=== PATIENT | female | born 1950 | race African-American/Black ===

== ENCOUNTER 2017-05-12 09:19 | Observation (INO) | payer OTHER ==
[~2017-05-12] VITALS: Ht 165.1 cm; Wt 67.1 kg
[2017-05-12] MEDS ORDERED: SIMVASTATIN40 MG ORAL (09:31)
[2017-05-12] MEDS ORDERED: Sodium Chloride 500ML 500 ML IV ONE (09:42)
[2017-05-12] MEDS ORDERED: Solu-MEDROL 125mg Inj IVP ONE (09:45)
[2017-05-12] MEDS ORDERED: DiphenhydrAMINE 50mg/ml Inj IVP ONE (09:45)
[2017-05-12 10:20] LABS: BASOPHILS % (AUTO) 1.1 % (0.0-2.0); EOSINOPHILS % (AUTO) 0.7 % (0.0-3.0); HEMATOCRIT 40.8 % (37.0-47.0); LYMPHOCYTES % (AUTO) 18.9 % (20.0-45.0); MEAN CORPUSCULAR VOLUME 102 FL (80-99); MONOCYTES % (AUTO) 7.6 % (1.0-10.0); NEUTROPHILS % (AUTO) 71.6 % (45.0-75.0); PLATELET COUNT 428 K/UL (150-450); WHITE BLOOD COUNT 8.2 K/UL (4.8-10.8)
[2017-05-12 10:30] VITALS: BP 148/62
[2017-05-12 10:33] LABS: ANION GAP 9 mmol/L (5-15); BLOOD UREA NITROGEN 6 mg/dL (7-18); CALCIUM 9.5 MG/DL (8.5-10.1); CARBON DIOXIDE 28 MMOL/L (21-32); CHLORIDE 98 MMOL/L (98-107); CREATININE 0.6 MG/DL (0.55-1.30); SODIUM 135 MMOL/L (136-145)
[2017-05-12 10:47] LABS: ALANINE AMINOTRANSFERASE 24 U/L (12-78); ALBUMIN 3.9 G/DL (3.4-5.0); ALBUMIN/GLOBULIN RATIO 0.9 (1.0-2.7); ALKALINE PHOSPHATASE 86 U/L (46-116); ASPARTATE AMINO TRANSFERASE 19 U/L (15-37); BILIRUBIN,TOTAL 0.5 MG/DL (0.2-1.0); CKMB 0.9 NG/ML (0.0-3.6); CREATINE KINASE 99 U/L (26-308)
--- NOTE | 2017-05-12 10:59 | Diagnostic Imaging Report ---
Indication: Dyspnea Comparison: None A single view chest radiograph was obtained. Findings: No definite infiltrate or pulmonary vascular congestion identified. The heart is enlarged. The aorta is mildly enlarged consistent with atherosclerotic vascular disease. The bones are osteopenic. Impression: No acute disease
[2017-05-12 12:47] VITALS: BP 146/111
[2017-05-12 14:48] VITALS: BP 154/70
--- NOTE | 2017-05-12 14:51 | Emergency Room Report ---
History of Present Illness General Chief Complaint: General Complaint Source: Patient Present Illness HPI 66-year-old female presents ED for evaluation. Patient states she was prescribed simvastatin by her PMD yesterday. Took one tablet last night. States she's been feeling short of breath since. Short of breath while resting during walking. Denies any chest pain. Denies any fevers or chills. Denies cough. Notes muscle aches. Dull, 5/10, nonradiating. No other aggravating or relieving factors. Denies any other suspected symptoms Allergies: Coded Allergies: No Known Allergies (Unverified , 05/12/17) Patient History Past Medical History: none Past Surgical History: none Pertinent Family History: none Social History: Denies: smoking, alcohol use, drug use Now: No Immunizations: UTD Reviewed Nursing Documentation: PMH: Agreed, PSxH: Agreed Nursing Documentation-PMH Past Medical History: No History, Except For Hx Cardiac Problems: No - high cholesterol Hx Hypertension: No Hx Pacemaker: No Hx Asthma: No Hx COPD: No Hx Diabetes: No Hx Cancer: No Hx Gastrointestinal Problems: No Hx Dialysis: No History Of Psychiatric Problem: No Hx Neurological Problems: No Hx Cerebrovascular Accident: No Hx Seizures: No Review of Systems All Other Systems: negative except mentioned in HPI Physical Exam Vital Signs Date Time Temp Pulse Resp B/P (MAP) Pulse Ox O2 Delivery O2 Flow Rate FiO2 05/12/17 09:24 98.3 79 16 150/85 99 Room Air 98.2 Sp02 EP Interpretation: reviewed, normal General Appearance: no apparent distress, alert, GCS 15, non-toxic Head: normocephalic, atraumatic Eyes: bilateral eye normal inspection, bilateral eye PERRL ENT: hearing grossly normal, normal pharynx, no angioedema, normal voice Neck: full range of motion, supple/symm/no masses Respiratory: chest non-tender, lungs clear, normal breath sounds, speaking full sentences Cardiovascular #1: regular rate, rhythm, no edema Cardiovascular #2: 2+ carotid (R), 2+ carotid (L), 2+ radial (R), 2+ radial (L) , 2+ dorsalis pedis (R), 2+ dorsalis pedis (L) Gastrointestinal: normal bowel sounds, non tender, soft, non-distended, no guarding, no rebound Rectal: deferred Genitourinary: normal inspection, no CVA tenderness Musculoskeletal: back normal, gait/station normal, normal range of motion, non- tender Neurologic: alert, oriented x3, responsive, motor strength/tone normal, sensory intact, speech normal Psychiatric: judgement/insight normal, memory normal, mood/affect normal, no suicidal/homicidal ideation Reflexes: 3+ bicep (R), 3+ bicep (L), 3+ tricep (R), 3+ tricep (L), 3+ knee (R) , 3+ knee (L) Skin: normal color, no rash, warm/dry, well hydrated Lymphatic: no adenopathy Medical Decision Making Diagnostic Impression: Primary Impression: Dyspnea Qualified Codes: R06.00 - Dyspnea, unspecified Additional Impressions: Elevated troponin ACS (acute coronary syndrome) ER Course Hospital Course 66-year-old female present to ED complaining of shortness of breath which started after taking simvastatin for the first time Differential diagnoses include: UT/unstable angina, pneuonia, allergic reaction Clinical course Patient placed on stretcher. on groundwater monitoring technician. After initial history and physical I ordered labs, EKG, chest x-ray, benedryl, solumedrol labs reviewed- no leukocytosis, hb/hct stable, electrolytes ok, trop 0.04 then 0.07 EKG - NSR, no acute ischemic changes interpreted by me Chest x-ray- no acute process Patient remains without chest pain but does appear short of breath during walking and while talking. No CHF symptoms. Aspirin given Case discussed with Dr. Hayes and he agreed to accept the patient to his service for further care and support I. I feel this is a highly complex case requiring extensive working including EKG/Rhythm strip, Xray/CT/US, Blood/urine lab work, repeat exams while in ED, and administration of strong opiates/narcotics for pain control, admission to hospital or close patient follow up. Diagnosis - dyspnea, elevated troponin, ACS admitted to telemetry in serious condition Labs Test 05/12/17 10:00 05/12/17 13:44 White Blood Count 8.2 K/UL (4.8-10.8) Red Blood Count 4.00 M/UL (4.20-5.40) Hemoglobin 14.0 G/DL (12.0-16.0) Hematocrit 40.8 % (37.0-47.0) Mean Corpuscular Volume 102 FL (80-99) Mean Corpuscular Hemoglobin 34.9 PG (27.0-31.0) Mean Corpuscular Hemoglobin Concent 34.2 G/DL (32.0-36.0) Red Cell Distribution Width 11.0 % (11.6-14.8) Platelet Count 428 K/UL (150-450) Mean Platelet Volume 5.4 FL (6.5-10.1) Neutrophils (%) (Auto) 71.6 % (45.0-75.0) Lymphocytes (%) (Auto) 18.9 % (20.0-45.0) Monocytes (%) (Auto) 7.6 % (1.0-10.0) Eosinophils (%) (Auto) 0.7 % (0.0-3.0) Basophils (%) (Auto) 1.1 % (0.0-2.0) Sodium Level 135 MMOL/L (136-145) Potassium Level 4.0 MMOL/L (3.5-5.1) Chloride Level 98 MMOL/L (98-107) Carbon Dioxide Level 28 MMOL/L (21-32) Anion Gap 9 mmol/L (5-15) Blood Urea Nitrogen 6 mg/dL (7-18) Creatinine 0.6 MG/DL (0.55-1.30) Estimat Glomerular Filtration Rate > 60 mL/min (>60) Glucose Level 99 MG/DL (74-106) Calcium Level 9.5 MG/DL (8.5-10.1) Total Bilirubin 0.5 MG/DL (0.2-1.0) Aspartate Amino Transf (AST/SGOT) 19 U/L (15-37) Alanine Aminotransferase (ALT/SGPT) 24 U/L (12-78) Alkaline Phosphatase 86 U/L (46-116) Total Creatine Kinase 99 U/L (26-308) Creatine Kinase MB 0.9 NG/ML (0.0-3.6) Creatine Kinase MB Relative Index 0.9 Troponin I 0.040 ng/mL (0.000-0.056) 0.070 ng/mL (0.000-0.056) Pro-B-Type Natriuretic Peptide 138 pg/mL (0-125) Total Protein 8.1 G/DL (6.4-8.2) Albumin 3.9 G/DL (3.4-5.0) Globulin 4.2 g/dL Albumin/Globulin Ratio 0.9 (1.0-2.7) EKG Diagnostic Results Rate: normal Rhythm: NSR ST Segments: no acute changes ASA given to the pt in ED: Yes Rhythm Strip Diag. Results EP Interpretation: yes Rhythm: NSR, no PVC's, no ectopy Chest X-Ray Diagnostic Results Chest X-Ray Diagnostic Results : Chest X-Ray Ordered: Yes # of Views/Limited/Complete: 1 View Indication: Shortness of Breath EP Interpretation: Yes Interpretation: no consolidation, no pneumothorax, no acute cardiopulmonary disease Impression: No acute disease Electronically Signed by: Electronically signed by Galen Vera MD Last Vital Signs Date Time Temp Pulse Resp B/P (MAP) Pulse Ox O2 Delivery O2 Flow Rate FiO2 05/12/17 12:47 98.1 71 17 146/111 100 Room Air 98.1 Status: improved Disposition: ADMITTED INPATIENT Condition: Serious Referrals: [facility],REFERRING (PCP) GALEN VERA M.D. May 12, 2017 14:51
[2017-05-12 15:35] VITALS: BP 112/58
[2017-05-12 16:00] VITALS: BP 136/74
[2017-05-12] MEDS: LORazepam 0.5mg tab ORAL PRN (18:47)
[2017-05-12 21:00] VITALS: BP 123/62
[2017-05-13] VITALS: BP 130/95
[2017-05-13 04:00] VITALS: BP 108/56
[2017-05-13 07:40] LABS: BASOPHILS % (AUTO) 0.6 % (0.0-2.0); EOSINOPHILS % (AUTO) 0.4 % (0.0-3.0); HEMATOCRIT 36.8 % (37.0-47.0); HEMOGLOBIN 12.7 G/DL (12.0-16.0); MEAN CORPUSCULAR VOLUME 102 FL (80-99); MONOCYTES % (AUTO) 8.1 % (1.0-10.0); NEUTROPHILS % (AUTO) 65.9 % (45.0-75.0); PLATELET COUNT 411 K/UL (150-450); RED BLOOD COUNT 3.61 M/UL (4.20-5.40); WHITE BLOOD COUNT 10.6 K/UL (4.8-10.8)
[2017-05-13 08:00] VITALS: BP 125/56
[2017-05-13 08:06] LABS: ANION GAP 6 mmol/L (5-15); BLOOD UREA NITROGEN 8 mg/dL (7-18); CALCIUM 9.5 MG/DL (8.5-10.1); CARBON DIOXIDE 29 MMOL/L (21-32); CHLORIDE 100 MMOL/L (98-107); CHOLESTEROL 191 MG/DL (< 200); CREATININE 0.6 MG/DL (0.55-1.30); HDL CHOLESTEROL 71 MG/DL (40-60); POTASSIUM 4.3 MMOL/L (3.5-5.1); SODIUM 135 MMOL/L (136-145); TRIGLYCERIDES 52 MG/DL (30-150)
[2017-05-13] MEDS: LORazepam 0.5mg tab ORAL PRN (11:08)
--- NOTE | 2017-05-13 11:44 | History and Physical ---
History of Present Illness General Date patient seen: May 13, 2017 Reason for Hospitalization: General Complaint Present Illness HPI 66 y/o female with newly diagnosed hyperlipidemia presented to the ED with complaints of chest tightness and leg cramping. She attributes her symptoms to taking simvastatin the night prior. She was just prescribed this cholesterol medication by her PCP after having a lipid panel showing total cholesterol of 250. She does state that she was not fasting at the time her blood was drawn. Her troponin was normal in the ED. She was admitted for further care. Allergies: Coded Allergies: No Known Allergies (Unverified , 05/12/17) Medication History Scheduled Simvastatin (Zocor), 40 MG ORAL BEDTIME, (Reported) Patient History History Provided By: Patient Healthcare decision maker Resuscitation status Full Code Advanced Directive on File Past Medical/Surgical History Past Medical/Surgical History: (1) Hyperlipidemia Review of Systems All Other Systems: negative except mentioned in HPI Physical Exam General Appearance: WD/WN, no apparent distress HEENT: normocephalic, atraumatic Neck: supple Respiratory/Chest: lungs clear Cardiovascular/Chest: normal rate, regular rhythm Abdomen: non tender, soft Extremities: non-tender, non-pitting, no edema Neurologic: alert, oriented x 3 Last 24 Hour Vital Signs Date Time Temp Pulse Resp B/P (MAP) Pulse Ox O2 Delivery O2 Flow Rate FiO2 05/13/17 08:00 65 05/13/17 08:00 98.1 67 22 125/56 97 Room Air 05/13/17 04:00 98.4 58 20 108/56 98 Room Air 05/13/17 03:45 46 05/13/17 00:00 98.2 89 20 130/95 97 Room Air 05/12/17 23:51 55 05/12/17 21:00 97.2 58 20 123/62 98 Room Air 05/12/17 16:00 91 05/12/17 16:00 99.1 79 19 136/74 98 Room Air 05/12/17 15:45 98.9 72 15 112/56 100 Room Air 05/12/17 15:35 71 15 112/58 100 Room Air 05/12/17 14:48 98.3 72 16 154/70 100 Room Air 98.3 05/12/17 12:47 98.1 71 17 146/111 100 Room Air 98.1 Intake and Output 05/12/17 05/13/17 19:00 07:00 Intake Total 980 ml Output Total 200 ml Balance 980 ml -200 ml Intake Oral 480 ml IV Total 500 ml Output Urine Total 200 ml # Voids 4 3 Laboratory Tests Test 05/12/17 13:44 05/13/17 06:20 Troponin I 0.070 ng/mL (0.000-0.056) 0.033 ng/mL (0.000-0.056) White Blood Count 10.6 K/UL (4.8-10.8) Red Blood Count 3.61 M/UL (4.20-5.40) L Hemoglobin 12.7 G/DL (12.0-16.0) Hematocrit 36.8 % (37.0-47.0) L Mean Corpuscular Volume 102 FL (80-99) H Mean Corpuscular Hemoglobin 35.2 PG (27.0-31.0) H Mean Corpuscular Hemoglobin Concent 34.5 G/DL (32.0-36.0) Red Cell Distribution Width 11.0 % (11.6-14.8) L Platelet Count 411 K/UL (150-450) Mean Platelet Volume 5.4 FL (6.5-10.1) L Neutrophils (%) (Auto) 65.9 % (45.0-75.0) Lymphocytes (%) (Auto) 25.0 % (20.0-45.0) Monocytes (%) (Auto) 8.1 % (1.0-10.0) Eosinophils (%) (Auto) 0.4 % (0.0-3.0) Basophils (%) (Auto) 0.6 % (0.0-2.0) Sodium Level 135 MMOL/L (136-145) L Potassium Level 4.3 MMOL/L (3.5-5.1) Chloride Level 100 MMOL/L (98-107) Carbon Dioxide Level 29 MMOL/L (21-32) Anion Gap 6 mmol/L (5-15) Blood Urea Nitrogen 8 mg/dL (7-18) Creatinine 0.6 MG/DL (0.55-1.30) Estimat Glomerular Filtration Rate > 60 mL/min (>60) Glucose Level 77 MG/DL (74-106) Calcium Level 9.5 MG/DL (8.5-10.1) Pro-B-Type Natriuretic Peptide 252 pg/mL (0-125) H Triglycerides Level 52 MG/DL (30-150) Cholesterol Level 191 MG/DL (< 200) LDL Cholesterol 115 mg/dL (<100) H HDL Cholesterol 71 MG/DL (40-60) H Cholesterol/HDL Ratio 2.7 (3.3-4.4) L Height (Feet): 5 Height (Inches): 5.00 Weight (Pounds): 148 Medications Current Medications Medications (Trade) Dose Ordered Sig/Zita Route PRN Reason Start Time Stop Time Status Last Admin Dose Admin Lorazepam (Ativan) 0.5 mg TIDPRN PRN ORAL For Anxiety 05/12/17 18:30 05/19/17 18:29 05/13/17 11:08 Assessment/Plan Problem List: (1) ACS (acute coronary syndrome) ICD Codes: I24.9 - Acute ischemic heart disease, unspecified SNOMED: 018699272 (2) Dyspnea ICD Codes: R06.00 - Dyspnea, unspecified SNOMED: 840129405 Qualifiers: Qualified Codes: R06.00 - Dyspnea, unspecified (3) Hyperlipidemia ICD Codes: E78.5 - Hyperlipidemia, unspecified SNOMED: 16720379 (4) Elevated troponin ICD Codes: R74.8 - Abnormal levels of other serum enzymes SNOMED: 328038442, 176185087, 318942336 Assessment/Plan Check fasting lipid panel. Check serial troponin. Cardiology eval. Check echo. D/c plan if all tests negative and AMI ruled out. LUCIAN NARVAEZ May 13, 2017 11:44
[2017-05-13 12:00] VITALS: BP 144/69
--- NOTE | 2017-05-13 12:43 | Discharge Summary ---
Discharge Summary Hospital Course Date of Admission May 12, 2017 at 14:20 Date of Discharge May [id number] Admitting Diagnosis sob,acs HPI Charlotte Aviles is a 66 y/o female with newly diagnosed hyperlipidemia presented to the ED with complaints of chest tightness and leg cramping. She attributes her symptoms to taking simvastatin the night prior. She was just prescribed this cholesterol medication by her PCP after having a lipid panel showing total cholesterol of 250. She does state that she was not fasting at the time her blood was drawn. Her troponin was normal in the ED. She was admitted for further care. Consultations Cardiology - Dr. Murillo. Hospital Course Serial troponin was checked and negative. She did take ativan at night prior to bedtime and was noted to be bradycardic with HR 46. However she was asymptomatic. She has no further chest pain or SOB. Lipid panel was ok. She is pending echo and cardiac clearance given her episode of bradycardia. Should anticipate discharge home today and follow up with PCP and outpatient cardiac workup. Discharge Condition Upon Discharge: stable Discharge Disposition Patient was discharged to Home (01) Discharge Diagnoses: (1) Dyspnea (2) Hyperlipidemia (3) ACS (acute coronary syndrome) LUCIAN NARVAEZ May 13, 2017 12:43
--- NOTE | 2017-05-15 13:13 | Cardiology Report ---
APPROVED REPORT EXAM: Two-dimensional and M-mode echocardiogram with Doppler and color Doppler. INDICATION Bradycardia M-Mode DIMENSIONS IVSd0.9 (0.7-1.1cm)Left Atrium (MM)2.9 (1.6-4.0cm) LVDd4.7 (3.5-5.6cm)Aortic Root2.5 (2.0-3.7cm) PWd0.7 (0.7-1.1cm)Aortic Cusp Exc.1.8 (1.5-2.0cm) LVDs2.9 (2.5-4.0cm) PWs1.6 cm Normal left ventricular chamber size, systolic function and wall motion. Left ventricular ejection fraction estimated to be 60-65 %. No evidence of left ventricular hypertrophy. No evidence of pericardial effusion. All other cardiac chamber sizes are within normal limits. Focal aortic valve sclerosis with adequate cusp excursion. Mildly thickened mitral valve leaflets with normal excursion. Mild mitral annulus and aortic root calcification. Normal pulmonic valve structure. Normal tricuspid valve structure. IVC dilated at 2.0 cm with physiologic collapse suggestive of increased RA pressure. A color flow and spectral Doppler study was performed and revealed: No aortic regurgitation.. No mitral regurgitation. Mitral diastolic velocities suggest mild left ventricular dysfunction (Grade I ). Trace tricuspid regurgitation. Tricuspid systolic velocities suggests peak right ventricular systolic pressure of 24 mmHg. Trace pulmonic regurgitation present.
--- NOTE | 2017-05-15 15:29 | Cardiology Report ---
APPROVED REPORT EKG Measurement Heart [id number] MD [id number] Normal sinus rhythm with sinus arrhythmia Left anterior fascicular block Nonspecific ST abnormality Abnormal ECG
== END 2017-05-13 15:30 | disposition home or self-care (01) ==
LOC: EMR 09:35 → INTOOBSV 14:20 → 2E 14:20 → EDBEDREQ 14:37
DX: I24.9 Acute ischemic heart disease, unspecified (principal); E78.00 Pure hypercholesterolemia, unspecified; E78.5 Hyperlipidemia, unspecified; I44.4 Left anterior fascicular block; R74.8 Abnormal levels of other serum enzymes; M85.88 Other specified disorders of bone density and structure, other site
CPT/HCPCS: 36415 ×2; 71045; 80048; 80053; 80061; 82550; 82553; 83880 ×2; 84484 ×2; 85025 ×2; 93005; 93306; 99285; G0378 ×2; J1200; J2930; J7040

== ENCOUNTER 2018-05-20 12:02 | Emergency (ER) | payer OTHER ==
[~2018-05-20] VITALS: Ht 167.6 cm; Wt 63.5 kg
[~2018-05-20 12:02] MED LIST: SIMVASTATIN40 MG ORAL
--- NOTE | 2018-05-20 12:37 | NUR ---
ED Nurse Note: pt walked in to ED due to tripped and fell injury yesterday. pt c/o pain on left upper arm. no deformity noted. limited ROM noted due to pain. AAO x4. respirations even and non-labored noted. skin intact. dried blood noted on upper lip. will wait for the further order.
[2018-05-20 13:09] VITALS: BP 135/65
--- NOTE | 2018-05-20 13:14 | NUR ---
ED Nurse Note: Notified radiology of order.
--- NOTE | 2018-05-20 13:25 | Emergency Room Report ---
History of Present Illness General Chief Complaint: Multiple Trauma/Fall Present Illness HPI 67-year-old female presents to the emergency department complaining of 4 out of 10 in severity pain localized to the left wrist and left elbows times one day status post mechanical trip and fall yesterday. Patient reports that she fell onto cement and landed on her chin/mouth she states that she sustained injury to one of the front left upper teeth as well as some abrasions to pull areas including left side of the upper lip, lateral aspect of the left hand as well as the anterior right knee. Patient states she is up-to-date with tetanus vaccinations she denies taking blood thinning medications she denies loss of consciousness, headache, dizziness, chest pain or palpitations. Patient denies midline neck or back pain. She reports pain is exacerbated upon movement of the left wrist and attempts to bend the left elbow. Patient reports some swelling erythema/bruising. Patient denies previous injury to this extremity. Patient denies paresthesias or loss of gross motor movements to the affected extremity. Denies sudden onset WEINER. Denies taking blood thinning medications. Allergies: Coded Allergies: No Known Allergies (Unverified , 05/12/17) Patient History Past Medical History: see triage record Past Surgical History: unable to obtain Pertinent Family History: none Now: No Reviewed Nursing Documentation: PMH: Agreed; PSxH: Agreed Nursing Documentation-PMH Hx Cardiac Problems: No - high cholesterol Hx Hypertension: No Hx Pacemaker: No Hx Asthma: No Hx COPD: No Hx Diabetes: No Hx Cancer: No Hx Gastrointestinal Problems: No Hx Dialysis: No Hx Neurological Problems: No Hx Cerebrovascular Accident: No Hx Seizures: No Review of Systems All Other Systems: negative except mentioned in HPI Physical Exam Vital Signs Date Time Temp Pulse Resp B/P (MAP) Pulse Ox O2 Delivery O2 Flow Rate FiO2 05/20/18 12:29 98.8 62 18 140/80 98 Room Air Sp02 EP Interpretation: reviewed, normal General Appearance: no apparent distress, alert, GCS 15, non-toxic Head: normocephalic, other - swelling of the upper lip with superficial abrasion noted, no bleeding, left front incisor is chipped. Eyes: bilateral eye normal inspection, bilateral eye PERRL ENT: hearing grossly normal, normal voice Neck: full range of motion, no bony tend Respiratory: chest non-tender, lungs clear, normal breath sounds, speaking full sentences Cardiovascular #1: regular rate, rhythm Gastrointestinal: non tender, soft Musculoskeletal: back normal, gait/station normal, normal range of motion, swelling - LEft elbow and left wrist, tender - Left elbow and left wrist, pain with ROM. Neurologic: alert, oriented x3, responsive, motor strength/tone normal, sensory intact, normal gait, speech normal, grossly normal Psychiatric: judgement/insight normal Skin: normal color, no rash, warm/dry, well hydrated, abrasions - right anterior knee abrasion, abrasion to the lateral aspect of the left hand. Medical Decision Making PA Attestation Dr. Arteaga is my supervising Physician whom patient management has been discussed with. Diagnostic Impression: Primary Impression: Contusion, multiple sites Additional Impressions: Abrasions of multiple sites Elbow fracture, left Qualified Codes: S42.402A - Unspecified fracture of lower end of left humerus , initial encounter for closed fracture ER Course 67-year-old female presents to the emergency department complaining of 4 out of 10 in severity pain localized to the left wrist and left elbows times one day status post mechanical trip and fall yesterday. Patient reports that she fell onto cement and landed on her chin/mouth she states that she sustained injury to one of the front left upper teeth as well as some abrasions to pull areas including left side of the upper lip, lateral aspect of the left hand as well as the anterior right knee. Patient states she is up-to-date with tetanus vaccinations she denies taking blood thinning medications she denies loss of consciousness, headache, dizziness, chest pain or palpitations. Patient denies midline neck or back pain. She reports pain is exacerbated upon movement of the left wrist and attempts to bend the left elbow. Patient reports some swelling erythema/bruising. Patient denies previous injury to this extremity. Patient denies paresthesias or loss of gross motor movements to the affected extremity. Denies sudden onset WEINER. Denies taking blood thinning medications. Ddx considered but are not limited to Fracture, dislocation, contusion, Sprain/ Strain/Spasm, tooth d/l, subdural hematoma just to name a few. Vital signs: are WNL, pt. is afebrile H&PE are most consistent with musculoskeletal injury will perform imaging to r/ o fractures/dislocations. ORDERS: - X-ray Left Wrist 3 views, Left elbow 3 views - negative for fx, Dislocation, or significant soft tissue injury, per preliminary read in ED, and signed by LITO Mcbride, my supervising physician has reviewed, and agrees with my interpretation. ED INTERVENTIONS: Left long arm posterior splint applied by cardiopulmonary technologist chief. Pt. remains neurovascularly intact. - Left arm Sling applied by cardiopulmonary technologist chief. Pt. remains neurovascularly intact. - Wound care - abrasions, left upper lip, left lateral hand, right anterior knee. -I do not identify an emergent condition at this time. With current presentation , pt. is stable for close outpatient follow up and conservative treatment. D/ w pt. to return promptly to ED with worsening or new symptoms.- Pt. verbalizes' understanding and agreement with proposed treatment plan. DISCHARGE: At this time pt. is stable for d/c to home. Will provide printed patient care instructions, and any necessary prescriptions. Care plan and follow up instructions have been discussed with the patient prior to discharge. Other X-Ray Diagnostic Results Other X-Ray Diagnostic Results #1: X-Ray ordered: Left wrist # of Views/Limited Vs Complete: 3 View Indication: Pain EP Interpretation: Yes PA Xray: Interpretation reviewed, by supervising MD, and agrees with findings. Interpretation: no dislocation, no soft tissue swelling, no fractures Impression: No acute disease Electronically Signed by: Chey Mcbride PA-C Other X-Ray Diagnostic Results #2: X-Ray ordered: Left Elbow # of Views/Limited Vs Complete: 3 View Indication: Swelling EP Interpretation: Yes PA Xray: Interpretation reviewed, by supervising MD, and agrees with findings. Interpretation: no dislocation, other - ST swelling, positive anterior and post. fat pad / sail sign-- occult fx suspected Impression: Other - abnormal: ST swelling, positive anterior and post. fat pad / sail sign-- occult fx suspected Electronically Signed by: Chey Mcbride PA-C Last Vital Signs Date Time Temp Pulse Resp B/P (MAP) Pulse Ox O2 Delivery O2 Flow Rate FiO2 05/20/18 13:09 98.5 65 20 135/65 98 Room Air Disposition: HOME, SELF-CARE Condition: Stable Scripts Ibuprofen* (MOTRIN*) 600 Mg Tablet 600 MG ORAL THREE TIMES A DAY, #30 TAB 0 Refills Prov: Chey Mcbride 05/20/18 Acetaminophen With Codeine (T#3) (TYLENOL #3 TAB*) Y Tab 1 TAB ORAL Q6H PRN for For Pain, #15 TAB Prov: Chey Mcbride 05/20/18 Patient Instructions: Abrasion, [id number], Contusion, [id number] Additional Instructions: Take medications as directed. Follow up with a Primary Care Provider in 3-5 days, even if your symptoms have resolved. ELBOW Fx assumed due to Anterior and posterior Sail Sign on X-ray --Please review list of primary care clinics, if you do not already have a primary care provider Return sooner to ED if new symptoms occur, or current symptoms become worse. - Please note that this Emergency Department Report was dictated using [employer] technology software, occasionally this can lead to erroneous entry secondary to interpretation by the dictation equipment. Chey Mcbride May 20, 2018 13:25
--- NOTE | 2018-05-20 13:26 | NUR ---
ED Nurse Note: Xray at the bedside.
[2018-05-20] MEDS ORDERED: Bacitracin Oint UD TOPIC ONE (13:45)
--- NOTE | 2018-05-20 15:17 | Diagnostic Imaging Report ---
Indication: Left wrist pain Findings: 3 views of the left wrist were obtained. No acute fractures, malalignment, erosions or periostitis are identified. Soft tissues are unremarkable. Impression: No acute findings.
--- NOTE | 2018-05-20 15:20 | Diagnostic Imaging Report ---
Indication: Pain Findings: 3 views of the left elbow were obtained. No acute fractures, malalignment, erosions or periostitis are identified. Soft tissues are unremarkable. There is a joint effusion with elevation of the fat pads. Impression: No acute fracture identified. Joint effusion is noted.
[2018-05-20] MEDS ORDERED: IBUPROFEN600 MG ORAL (15:43)
[2018-05-20] MEDS ORDERED: ACETAMINOPHEN-1 EAC1 ORAL (15:43)
[2018-05-20 15:51] VITALS: BP 130/66
--- NOTE | 2018-05-20 15:52 | NUR ---
ER DISCHARGE NOTE: Patient is cleared to be discharged per ERMD, pt is aox4, on room air, with stable vital signs. pt was given dc and prescription instructions, pt was able to verbalize understanding, pt id band removed without complications. pt is able to ambulate with steady gait. pt took all belongings.
== END 2018-05-20 13:52 | disposition home or self-care (01) ==
LOC: EMR 13:02
DX: S60.212A Contusion of left wrist, initial encounter (principal); S50.02XA Contusion of left elbow, initial encounter; S00.511A Abrasion of lip, initial encounter; S80.211A Abrasion, right knee, initial encounter; S60.512A Abrasion of left hand, initial encounter; S42.402A Unspecified fracture of lower end of left humerus, initial encounter for closed fracture; W19.XXXA Unspecified fall, initial encounter; Y92.89 Other specified places as the place of occurrence of the external cause
CPT/HCPCS: 29105; 99284